=== PATIENT | male | born 1925 | race Caucasian/White ===

== ENCOUNTER 2017-05-17 07:46 | Emergency (ER) | payer OTHER ==
[2017-05-17 08:03] LABS: COLOR YELLOW; LEUKOCYTE ESTERASE,URINE NEGATIVE (NEGATIVE); NITRITE,URINE NEGATIVE (NEGATIVE)
[2017-05-17 08:14] LABS: BACTERIA TRACE /hpf (NONE SEEN); MUCUS TRACE /lpf (NONE-1+); RBC,URINE 50-182 /hpf (0-3); WBC,URINE 0-1 /hpf (0-3)
--- NOTE | 2017-05-17 08:22 | EDPHY ---
H & P Time Seen by Provider: 05/17/17 07:52 HPI/ROS: This patient is brought in by his daughter with whom he lives with chief complaint of hematuria. The patient has some stress incontinence an he wears a pad his underwear and daughter noticed bright red blood staining the pad. She noticed this yesterday evening and brought him in by private vehicle today for further evaluation. He has no other acute complaints. This is the 1st time that he has had gross hematuria. ROS: No fevers or chills. No other constitutional symptoms HEENT: No complaints Pulmonary: Chronic baseline dyspnea attributable to congestive heart failure and sleep apnea. No recent change in the mild dyspnea at baseline. Cardiovascular: Patient has chronic leg edema unchanged. No chest pain. No heart palpitations. No lightheadedness. GI: No abdominal pain. No nausea or vomiting. : No testicular pain. No flank pain. No urethral discharge. Integumentary: No skin rash except for mild "yeast rash "in the region treated with Monistat [id number] by daughter. Neuro: No complaints except some difficulty with short-term memory. 10 point ROS is otherwise negative. Past Medical/Surgical History: Atrial fibrillation CHF Pneumonia 2013 Sleep apnea Smoking Status: Never smoked Physical Exam: General Appearance: Pleasant moderately obese male appears younger than his stated age Alert, no distress. Eyes: Pupils equal and round no pallor or injection. ENT, Mouth: Mucous membranes moist. Respiratory: There are no retractions, lungs are clear to auscultation. Cardiovascular: Irregularly irregular with a soft 2/6 holosystolic murmur. Mild lower extremity edema. No JVD. Gastrointestinal: Abdomen is soft and nontender, no masses, bowel sounds normal. Back: No CVA tenderness : No testicular or epididymal tenderness. Non circumcised penis with easily retractable foreskin. No erythema or discharge to the glans. Neurological: GCS 15. No focal deficits. Skin: Warm and dry, no rashes. Musculoskeletal: Neck is supple nontender. Extremities are symmetrical, full range of motion. Psychiatric: Mood and affect are normal DIFFERENTIAL DIAGNOSIS: After history and physical exam differential diagnosis was considered for hemorrhagic cystitis, ureteral calculus, neoplasm Constitutional: Initial Vital Signs Temperature (C) 36.7 C 05/17/17 07:55 Heart Rate 84 05/17/17 07:55 Respiratory Rate 24 H 05/17/17 07:55 Blood Pressure 118/80 05/17/17 07:55 O2 Sat (%) 90 L 05/17/17 07:55 O2 Delivery Mode Room Air O2 (L/minute) 2 Allergies/Adverse Reactions: No Known Allergies Allergy (Verified 05/17/17 07:55) Home Medications: Medication Instructions Recorded Atorvastatin Calcium [Lipitor] 40 mg PO 08/11/12 Furosemide [Lasix 40 MG (RX)] 40 mg PO DAILY 08/11/12 Lisinopril/Hydrochlorothiazide 1 ea PO 08/11/12 [Lisinopril-Hctz 10-12.5 mg Tab] Metoprolol Tartrate [Lopressor 100 100 mg PO BID 08/11/12 mg (RX)] POTASSIUM CHLORIDE [K-Elena] 20 meq PO 08/11/12 Rivaroxaban [Xarelto] 20 mg PO 08/11/12 Rivaroxaban [Xarelto 15mg (*)] 15 mg PO DAILY #30 tab 05/17/17 Tamsulosin HCl [Flomax 0.4 MG (*)] 0.4 mg PO DAILY #20 cap 05/17/17 MDM/Departure - MDM Imaging Results: Imaging Impressions Abdomen/Pelvis CT 05/17/17 08:33 Impression: 1. Bilateral renal cortical cysts. No evidence for nephrolithiasis or hydronephrosis. No evidence for bladder calculus. 2. Other multiple chronic findings, as above. Results called and discussed with Alexy Hussein MD on May 17, 2017 at 0929 hours. Attention: This CT examination is specifically designed to evaluate patients who are clinically suspected of having acute obstructive uropathy. This examination does not use radiographic contrast, and as such, provides only a limited evaluation of the abdomen, pelvis, and retroperitoneum. If there is further clinical suspicion for pathological conditions other than obstructive uropathy, a complete CT evaluation of the abdomen and pelvis utilizing intravenous, oral, and rectal contrast should be considered. Imaging: Discussed imaging studies w/ call center agent Radiologist ED Course/Re-evaluation: Discussion/clinical decision-making: This patient with gross hematuria does not have findings consistent with infectious etiology on his urinalysis. CT performed to rule out neoplasm or calculus reveals neither problem. His prostate does appear mildly to moderately enlarged on the CT per Dr. Hayes, radiologist. No significant proteinuria and no evidence of renal insufficiency that would suggest glomerulonephritis. Patient is currently on a 20 mg dose of Xarelto while a 15 mg dose may suffice. I think that a combination of BPH & a mild coagulopathy are likely the cause of this patient's gross hematuria. Although not perfectly correlated to the degree of coagulation with Xarelto, his INR is just short of 3 currently. Will plan to cut his dose down to 15 mg of Xarelto maintenance and placed him on Flomax with plan to follow up with his urologist-Dr. Sewell for further workup as an outpatient. - Depart Disposition: Home, Routine, Self-Care Clinical Impression: Gross hematuria, xarelto induced coagulopathy Condition: Good Instructions: Hematuria (ED) Additional Instructions: Diagnosis: Gross hematuria Today CT scan ruled out kidney or ureteral stone. Your prostate looked mildly enlarged on CT. We do not appreciate any evidence of neoplasm on the CT Urinalysis showed blood but no evidence of infection The bleeding is likely related to slightly enlarged prostate and the Xarelto being a bit too effective as a blood thinner at the 20 mg dose. Plan: Cut Xarelto back to 15 mg dose Start Flomax Follow up with Dr. Sewell-urology Return for any significant worsening or addition of new symptoms. Prescriptions: Rivaroxaban [Xarelto 15mg (*)] 15 mg PO DAILY #30 tab Tamsulosin HCl [Flomax 0.4 MG (*)] 0.4 mg PO DAILY #20 cap Referrals: Ani Walsh DO [Primary Care Provider] - As per Instructions Jimmy Sewell MD [Medical Doctor] - As per Instructions
[2017-05-17 08:50] LABS: % IMMATURE GRANULYOCYTES 0.4 % (0.0-1.1); ABSOLUTE IMMATURE GRANULOCYTES 0.03 10^3/uL (0.00-0.10); ADD DIFF? NO; ADD MORPH? NO; ADD SCAN? NO; ATYPICAL LYMPHOCYTE FLAG 0 (0-99); FRAGMENT RBC FLAG 0 (0-99); HEMATOCRIT 39.7 % (40.0-51.0); HEMOGLOBIN 13.2 g/dL (13.7-17.5); LEFT SHIFT FLG 0 (0-99); LIPEMIA HEMOLYSIS FLAG 80 (0-99); MEAN CELL HEMOGLOBIN 30.8 pg (27.9-34.1); MEAN CELL HEMOGLOBIN CONCENTR. 33.2 g/dL (32.4-36.7); MEAN CELL VOLUME 92.8 fL (81.5-99.8); MEAN PLATELET VOLUME 10.4 fL (8.7-11.7); PLATELET CLUMPS FLAG 0 (0-99); PLATELET COUNT 180 10^3/uL (150-400); RED BLOOD CELL COUNT 4.28 10^6/uL (4.40-6.38); RED CELL DISTRIBUTION WIDTH 14.2 % (11.5-15.2)
[2017-05-17 09:06] LABS: INR 2.91 (0.83-1.16); PROTIME(PATIENT) 30.3 SEC (12.0-15.0)
[2017-05-17 09:07] LABS: APTT 39.4 SEC (23.0-38.0)
[2017-05-17 09:21] LABS: ANION GAP 14 mEq/L (8-16); CALCIUM 8.9 mg/dL (8.5-10.4); CARBON DIOXIDE 23 mEq/l (22-31); CHLORIDE 104 mEq/L (97-110); GLOMERULAR FILTRATION RATE > 60; GLUCOSE 105 mg/dL (70-100); POTASSIUM 4.1 mEq/L (3.5-5.2); SODIUM 141 mEq/L (134-144)
[2017-05-17 09:50] VITALS: BP 102/55; PULSE 69; RESP 20; TEMP 97.9; O2SAT 92
== END 2017-05-17 09:50 | disposition home or self-care (01) ==
LOC: CED 07:46
DX: R31.0 Gross hematuria (principal); D68.9 Coagulation defect, unspecified; I50.9 Heart failure, unspecified; Z79.01 Long term (current) use of anticoagulants
CPT/HCPCS: 74176-PO; 80048-PO; 81003-PO; 81015-PO; 85025-PO; 85610-PO; 85730-PO

== ENCOUNTER → 2017-06-05 | Outpatient (CLI) | payer OTHER ==
[~2017-06-05] MED LIST: IOPAMIDOL (ISOVUE-300) 100 ML BTL ONE
== END ==
LOC: CIMAGING 13:04
PROVIDERS: ATTEND Specialist
DX: R31.0 Gross hematuria (principal); N28.1 Cyst of kidney, acquired; K44.9 Diaphragmatic hernia without obstruction or gangrene
CPT/HCPCS: 74177; Q9967